=== PATIENT | male | born 1965 | race African-American/Black ===

== ENCOUNTER → 2023-11-03 | Emergency (ER) | payer BC, OTHER ==
[~2023-11-03] MED LIST: DIPHENHYDRAMINE 25 MG TAB/CAP ONE; predniSONE 20 MG TAB ONE
--- NOTE | 2023-11-03 04:33 | EDPHYS ---
Physician Documentation [facility] Name: Keenan Tom Age: 58 yrs Sex: Male : 1965 Arrival Date: 11/03/2023 Time: 03:54 Bed 12 Private MD: ED Physician Marek Block HPI: 11/02 04:01 This 58 yrs old Black Male presents to ER via Unassigned with complaints of Rash. sp4 04:28 58-year-old male presents with complaint of bilateral lower abdominal lateral rash that sp4 has started Tuesday after he completed course of Paxlovid. Rashes started 5 days ago.. Patient states he was using creams for rash but has not improved. . Historical: - Allergies: 04:15 No Known Allergies; ha1 - PMHx: 04:15 LYMPHOMA; ha1 - Immunization history:: Adult Immunizations up to date. - Social history:: Smoking status: Patient denies any tobacco usage or history of. - Family history:: not pertinent. ROS: 04:28 Constitutional: Negative for fever, chills, and weight loss, positive for abdominal sp4 rash and itching 04:28 All other systems are negative, Exam: 04:28 Constitutional: This is a well developed, well nourished patient who is awake, alert, sp4 and in no acute distress. Head/Face: Normocephalic, atraumatic. Eyes: Pupils equal round and reactive to light, extra-ocular motions intact. Lids and lashes normal. Conjunctiva and sclera are not injected. Cornea within normal limits. Periorbital areas with no swelling, redness, or edema. ENT: Nares patent. No nasal discharge, no septal abnormalities noted. Tympanic membranes are normal and external auditory canals are clear. Oropharynx with no redness, swelling, or masses, exudates, or evidence of obstruction, uvula midline. Mucous membranes moist. Neck: Trachea midline, no thyromegaly or masses palpated, and no cervical lymphadenopathy. Supple, full range of motion without nuchal rigidity, or vertebral point tenderness. Chest/axilla: Normal chest wall appearance and motion. Nontender with no deformity. No lesions are appreciated. Cardiovascular: Regular rate and rhythm with a normal S1 and S2. No gallops, murmurs, or rubs. Normal PMI, no JVD. No pulse deficits. Respiratory: Lungs have equal breath sounds bilaterally, clear to auscultation and percussion. No rales, rhonchi or wheezes noted. No increased work of breathing, no retractions or nasal flaring. Abdomen/GI: Soft, with normal bowel sounds. No distension or tympany. No guarding or rebound. No evidence of tenderness throughout. Back: No spinal tenderness. No costovertebral tenderness. Male : Normal genitalia with no discharge or lesions. Skin: Warm, dry with normal turgor. Normal color with no rashes, no lesions, and no evidence of cellulitis. MS/ Extremity: Pulses equal, no cyanosis. Neurovascular intact. Full, normal range of motion. Neuro: Awake and alert, GCS 15, oriented to person, place, time, and situation. Cranial nerves II-XII grossly intact. Motor strength 5/5 in all extremities. Sensory grossly intact. Psych: Awake, alert, with orientation to person, place and time. Behavior, mood, and affect are within normal limits Vital Signs: 04:11 BP 172 / 98; Pulse 72; Resp 17 S; Temp 98.2; Pulse Ox 100% on R/A; Weight 93.44 kg; ha1 Height 5 ft. 10 in. ; 04:24 BP 133 / 95; Pulse 75; Resp 17 S; Pulse Ox 100% on R/A; ha1 04:11 Body Mass Index 29.56 (93.44 kg, 177.8 cm) ha1 MDM: 04:09 Patient medically screened. sp4 04:30 Differential diagnosis: impetigo, varicella, allergic reaction, parasite infection. sp4 Data reviewed: vital signs, nurses notes, old medical records. ED course: Patient will be prescribed prednisone once a day for 5 days and also as needed Benadryl will be advised.. Administered Medications: 04:24 Drug: predniSONE PO 60 mg PO once Route: PO; ha1 04:52 Follow up: Response: No adverse reaction ha1 04:24 Drug: diphenhydrAMINE PO 25 mg PO once Route: PO; ha1 04:52 Follow up: Response: No adverse reaction ha1 Disposition Summary: 11/03/23 04:33 Discharge Ordered Problem: new sp4 Symptoms: have improved sp4 Condition: Stable sp4 Diagnosis - Allergic reaction secondary to medication sp4 Followup: sp4 - With: Private Physician - When: 7 - 10 days - Reason: Recheck today's complaints Discharge Instructions: - Discharge Summary Sheet sp4 - Atopic Dermatitis sp4 Forms: - Patient Portal Instructions sp4 Prescriptions: - Prednisone 20 mg Oral Tablet - take 2 tablets ORAL route once daily for 5 days; 10 tablet; Refills: 0, Product sp4 Selection Permitted Signatures: Nicole Padilla RN RN ha1 Marek Block MD MD sp4
--- NOTE | 2023-11-03 04:33 | ER ---
Nurse's Notes [facility] Name: Keenan Tom Age: 58 yrs Sex: Male : 1965 Arrival Date: 11/03/2023 Time: 03:54 Bed 12 Private MD: Diagnosis: Allergic reaction secondary to medication Presentation: 11/02 04:11 Chief complaint: Patient states: I HAVE A RASH IN THE INGUINAL AREA SINCE TUESDAY. ha1 Coronavirus screen: Vaccine status: Patient reports being unvaccinated. Ebola Screen: No symptoms or risks identified at this time. Initial Sepsis Screen: Does the patient meet any 2 criteria? No. Patient's initial sepsis screen is negative. Does the patient have a suspected source of infection? No. Patient's initial sepsis screen is negative. Risk Assessment: Do you want to hurt yourself or someone else? Patient reports no desire to harm self or others. Onset of symptoms was November 03, 2023. 04:11 Method Of Arrival: Ambulatory 1 04:11 Acuity: MJ 4 ha1 Triage Assessment: 04:15 General: Appears comfortable, Behavior is calm, cooperative. Pain: Denies pain. Neuro: ha1 Level of Consciousness is awake, alert, obeys commands, Oriented to person, place, time, situation. Cardiovascular: Capillary refill < 3 seconds Patient's skin is warm and dry. Respiratory: Airway is patent Respiratory effort is even, unlabored, Respiratory pattern is regular, symmetrical. Derm: Reports itching. Derm: Rash noted that is red, urticaria. Musculoskeletal: Circulation, motion, and sensation intact. Range of motion: intact in all extremities. Historical: - Allergies: 04:15 No Known Allergies; ha1 - PMHx: 04:15 LYMPHOMA; ha1 - Immunization history:: Adult Immunizations up to date. - Social history:: Smoking status: Patient denies any tobacco usage or history of. - Family history:: not pertinent. Screenin:18 [facility] ED Fall Risk Assessment (Adult) History of falling in the last 3 months, ha1 including since admission No falls in past 3 months (0 pts) Confusion or Disorientation No (0 pts) Intoxicated or Sedated No (0 pts) Impaired Gait No (0 pts) Mobility Assist Device Used No (0 pt) Altered Elimination No (0 pt) Score/Fall Risk Level 0 - 2 = Low Risk Oriented to surroundings, Maintained a safe environment, Hourly rounding (assess needs \T\ fall precautionary measures) done. Abuse screen: Denies threats or abuse. Denies injuries from another. Nutritional screening: No deficits noted. Tuberculosis screening: No symptoms or risk factors identified. Vital Signs: 04:11 BP 172 / 98; Pulse 72; Resp 17 S; Temp 98.2; Pulse Ox 100% on R/A; Weight 93.44 kg; ha1 Height 5 ft. 10 in. ; 04:24 BP 133 / 95; Pulse 75; Resp 17 S; Pulse Ox 100% on R/A; ha1 04:11 Body Mass Index 29.56 (93.44 kg, 177.8 cm) ha1 ED Course: 03:58 Patient arrived in ED. gm2 04:01 Marek Block MD is Attending Physician. sp4 04:08 Patient has correct armband on for positive identification. Placed in gown. Bed in low ha1 position. Call light in reach. Side rails up X 1. 04:08 Arm band placed on right wrist. ha1 04:15 Triage completed. ha1 04:51 Provided Education on: medication administration . ha1 04:51 No provider procedures requiring assistance completed. Patient did not have IV access ha1 during this emergency room visit. Administered Medications: 04:24 Drug: predniSONE PO 60 mg PO once Route: PO; ha1 04:52 Follow up: Response: No adverse reaction ha1 04:24 Drug: diphenhydrAMINE PO 25 mg PO once Route: PO; ha1 04:52 Follow up: Response: No adverse reaction 1 Medication: 04:18 VIS not applicable for this client. ha1 Outcome: 04:33 Discharge ordered by . sp4 04:51 Discharged to home ambulatory, ha1 04:51 Condition: stable 04:51 Discharge instructions given to patient, Instructed on discharge instructions, follow up and referral plans. medication usage, Demonstrated understanding of instructions, follow-up care, medications, Prescriptions given X 2, 04:52 Patient left the ED. ha1 Signatures: Nicole Padilla RN RN ha1 Marek Block MD MD sp4 Linda Montoya 2
[2023-11-03 05:15] VITALS: BP 133/95; TEMP 98.2; O2SAT 100
== END ==
LOC: ER 03:54
DX: R21 Rash and other nonspecific skin eruption (principal); T50.995A Adverse effect of other drugs, medicaments and biological substances, initial encounter
CPT/HCPCS: 99283; J7512

== ENCOUNTER 2024-10-03 02:53 | Emergency (ER) | payer BC ==
--- NOTE | 2024-10-03 03:16 | EDPHYS ---
Physician Documentation [facility] Name: Keenan Tom Age: 59 yrs Sex: Male : 1965 Arrival Date: 10/03/2024 Time: 02:53 Bed DX3 Private MD: Amilcar Hester S ED Physician Marek Block HPI: 10/03 02:58 This 59 yrs old Black Male presents to ER via Unassigned with complaints of Rash. sp4 22:03 59-year-old male presents with complaint of truncal and lower abdominal rash starting sp4 acutely. Historical: - Allergies: 03:18 No Known Allergies; lg3 - Home Meds: 03:18 Metoprolol Tartrate Oral [Active]; lg3 - PMHx: 03:18 LYMPHOMA; HTN (LYMPHOMA); lg3 - PSHx: 03:18 L shoulder (LYMPHOMA); lg3 - Immunization history:: Adult Immunizations up to date. - Infectious Disease History:: Denies. - Social history:: Smoking status: Patient denies any tobacco usage or history of. Patient/guardian denies using alcohol, street drugs. - Family history:: not pertinent. ROS: 22:05 Constitutional: Negative for fever, chills, and weight loss, positive for truncal sp4 and lower abdominal rash 22:05 All other systems are negative, Exam: 22:05 Constitutional: This is a well developed, well nourished patient who is awake, alert, sp4 and in no acute distress. Head/Face: Normocephalic, atraumatic. Eyes: Pupils equal round and reactive to light, extra-ocular motions intact. Lids and lashes normal. Conjunctiva and sclera are not injected. Cornea within normal limits. Periorbital areas with no swelling, redness, or edema. ENT: Nares patent. No nasal discharge, no septal abnormalities noted. Tympanic membranes are normal and external auditory canals are clear. Oropharynx with no redness, swelling, or masses, exudates, or evidence of obstruction, uvula midline. Mucous membranes moist. Neck: Trachea midline, no thyromegaly or masses palpated, and no cervical lymphadenopathy. Supple, full range of motion without nuchal rigidity, or vertebral point tenderness. Chest/axilla: Normal chest wall appearance and motion. Nontender with no deformity. No lesions are appreciated. Cardiovascular: Regular rate and rhythm with a normal S1 and S2. No gallops, murmurs, or rubs. Normal PMI, no JVD. No pulse deficits. Respiratory: Lungs have equal breath sounds bilaterally, clear to auscultation and percussion. No rales, rhonchi or wheezes noted. No increased work of breathing, no retractions or nasal flaring. Abdomen/GI: Soft, with normal bowel sounds. No distension or tympany. No guarding or rebound. No evidence of tenderness throughout. Back: No spinal tenderness. No costovertebral tenderness. Skin: Warm, dry with normal turgor. Normal color with very mild truncal and lower abdominal eczematoid type rash in small islets MS/ Extremity: Pulses equal, no cyanosis. Neurovascular intact. Full, normal range of motion. Neuro: Awake and alert, GCS 15, oriented to person, place, time, and situation. Cranial nerves II-XII grossly intact. Motor strength 5/5 in all extremities. Sensory grossly intact. Psych: Awake, alert, with orientation to person, place and time. Behavior, mood, and affect are within normal limits Vital Signs: 03:16 BP 134 / 88; Pulse 68; Resp 16 S; Temp 98(O); Pulse Ox 100% on R/A; Weight 92.99 kg lg3 (R); Height 5 ft. 10 in. (R); 03:16 Body Mass Index 29.41 (92.99 kg, 177.8 cm) lg3 Pete Coma Score: 22:05 Eye Response: spontaneous(4). Motor Response: obeys commands(6). Verbal Response: sp4 oriented(5). Total: 15. MDM: 03:15 Medical Screening Exam initiated sp4 22:05 Differential diagnosis: impetigo, varicella, allergic reaction, parasite infection, sp4 carcinoma. Data reviewed: vital signs, nurses notes, old medical records. ED course: Patient appears to have mild eczematoid type rash. Will treat like allergic dermatitis. Prescribed prednisone for the next 5 days.. Administered Medications: 03:26 Drug: diphenhydrAMINE PO 25 mg PO once Route: PO; lg3 03:27 Follow up: Response: No adverse reaction; Medication administered at discharge. lg3 03:26 Drug: Famotidine PO 20 mg PO once Route: PO; lg3 03:27 Follow up: Response: No adverse reaction; Medication administered at discharge. lg3 03:27 Drug: predniSONE PO 60 mg PO once Route: PO; lg3 03:27 Follow up: Response: No adverse reaction; Medication administered at discharge. lg3 Disposition: 22:08 Chart complete. sp4 Disposition Summary: 10/03/24 03:15 Discharge Ordered Notes: Location: Home sp4 Problem: new sp4 Symptoms: have improved sp4 Condition: Stable sp4 Diagnosis - Allergic contact dermatitis due to other agents sp4 Followup: sp4 - With: Amilcar Hester MD - When: 7 - 10 days - Reason: Recheck today's complaints Discharge Instructions: - Discharge Summary Sheet sp4 - Contact Dermatitis sp4 Forms: - Patient Portal Instructions sp4 Prescriptions: - Benadryl 25 mg Oral capsule - take 1 capsule ORAL route every 8 hours As needed; 30 tablet; Refills: 0, sp4 Product Selection Permitted - Prednisone 20 mg Oral Tablet - take 2 tablets ORAL route once daily for 5 days; 10 tablet; Refills: 0, Product sp4 Selection Permitted Signatures: Patricia Kelley RN RN lg3 aMrek Block MD MD sp4
[2024-10-03] MEDS ORDERED: predniSONE 20 MG TAB ONE (03:22)
[2024-10-03] MEDS ORDERED: DIPHENHYDRAMINE 25 MG TAB/CAP ONE (03:22)
[2024-10-03] MEDS ORDERED: FAMOTIDINE 20 MG TAB ONE (03:22)
--- NOTE | 2024-10-03 03:28 | ER ---
Nurse's Notes [facility] Name: Keenan Tom Age: 59 yrs Sex: Male : 1965 Arrival Date: 10/03/2024 Time: 02:53 Bed DX3 Private MD: Amilcar Hester S Diagnosis: Allergic contact dermatitis due to other agents Presentation: 10/03 03:16 Chief complaint: Patient states: itchy rash on bilateral flank, bilateral hips and lg3 back. Coronavirus screen: Client denies travel out of the [place] in the last 14 days. At this time, the client does not indicate any symptoms associated with coronavirus-19. Ebola Screen: No symptoms or risks identified at this time. Initial Sepsis Screen: Does the patient meet any 2 criteria? No. Patient's initial sepsis screen is negative. Does the patient have a suspected source of infection? No. Patient's initial sepsis screen is negative. Risk Assessment: Do you want to hurt yourself or someone else? Patient reports no desire to harm self or others. Onset of symptoms is unknown. 03:16 Method Of Arrival: Ambulatory lg3 03:16 Acuity: MJ 5 lg3 Triage Assessment: 03:18 General: Appears in no apparent distress. uncomfortable, Behavior is calm, cooperative. lg3 Pain: Denies pain. EENT: No deficits noted. No signs and/or symptoms were reported regarding the EENT system. Neuro: No deficits noted. Bales Agitation-Sedation Scale (RASS): 0 - Alert and Calm Level of Consciousness is awake, alert, obeys commands, Oriented to person, place, time, situation. Cardiovascular: No deficits noted. Denies chest pain, shortness of breath, Capillary refill < 3 seconds Clubbing of nail beds is absent JVD is absent Patient's skin is warm and dry. Respiratory: No deficits noted. Airway is patent Respiratory effort is even, unlabored, Respiratory pattern is regular, symmetrical, Breath sounds are clear bilaterally. GI: No deficits noted. No signs and/or symptoms were reported involving the gastrointestinal system. : No signs and/or symptoms were reported regarding the genitourinary system. Derm: Skin is intact, is healthy with good turgor, Skin is dry, Skin is normal, Skin temperature is warm Rash noted that is itchy, on back, abdomen and pelvis. Musculoskeletal: No deficits noted. No signs and/or symptoms reported regarding the musculoskeletal system. Circulation, motion, and sensation intact. Range of motion: intact in all extremities. Historical: - Allergies: 03:18 No Known Allergies; lg3 - Home Meds: 03:18 Metoprolol Tartrate Oral [Active]; lg3 - PMHx: 03:18 LYMPHOMA; HTN (LYMPHOMA); lg3 - PSHx: 03:18 L shoulder (LYMPHOMA); lg3 - Immunization history:: Adult Immunizations up to date. - Infectious Disease History:: Denies. - Social history:: Smoking status: Patient denies any tobacco usage or history of. Patient/guardian denies using alcohol, street drugs. - Family history:: not pertinent. Screenin:20 [facility] ED Fall Risk Assessment (Adult) History of falling in the last 3 months, lg3 including since admission No falls in past 3 months (0 pts) Confusion or Disorientation No (0 pts) Intoxicated or Sedated No (0 pts) Impaired Gait No (0 pts) Mobility Assist Device Used No (0 pt) Altered Elimination No (0 pt) Score/Fall Risk Level 0 - 2 = Low Risk Oriented to surroundings, Maintained a safe environment, Educated pt \T\ family on fall prevention, incl call for assistance when getting out of bed, Assessed \T\ reinforced patient's understanding of fall precautions. Abuse screen: Denies threats or abuse. Denies injuries from another. Nutritional screening: No deficits noted. Tuberculosis screening: No symptoms or risk factors identified. Assessment: 03:20 General: see triage assessment. lg3 Vital Signs: 03:16 BP 134 / 88; Pulse 68; Resp 16 S; Temp 98(O); Pulse Ox 100% on R/A; Weight 92.99 kg lg3 (R); Height 5 ft. 10 in. (R); 03:16 Body Mass Index 29.41 (92.99 kg, 177.8 cm) lg3 Pete Coma Score: 22:05 Eye Response: spontaneous(4). Motor Response: obeys commands(6). Verbal Response: sp4 oriented(5). Total: 15. ED Course: 02:57 Patient arrived in ED. gm2 02:57 Amilcar Hester MD is Private Physician. gm2 02:58 Marek Block MD is Attending Physician. sp4 03:15 Amilcar Hester MD is Referral Physician. sp4 03:17 Triage completed. lg3 03:18 Arm band placed on right wrist. lg3 03:20 Patient has correct armband on for positive identification. lg3 03:20 No provider procedures requiring assistance completed. Patient did not have IV access lg3 during this emergency room visit. Administered Medications: 03:26 Drug: diphenhydrAMINE PO 25 mg PO once Route: PO; lg3 03:27 Follow up: Response: No adverse reaction; Medication administered at discharge. lg3 03:26 Drug: Famotidine PO 20 mg PO once Route: PO; lg3 03:27 Follow up: Response: No adverse reaction; Medication administered at discharge. lg3 03:27 Drug: predniSONE PO 60 mg PO once Route: PO; lg3 03:27 Follow up: Response: No adverse reaction; Medication administered at discharge. lg3 Medication: 03:20 VIS not applicable for this client. lg3 Outcome: 03:15 Discharge ordered by . sp4 03:27 Discharged to home ambulatory, lg3 03:27 Condition: stable 03:27 Discharge instructions given to patient, Instructed on discharge instructions, follow up and referral plans. medication usage, Demonstrated understanding of instructions, follow-up care, medications, Prescriptions given X 2, 03:27 Patient left the ED. lg3 Signatures: Patricia Kelley RN RN lg3 Marek Block MD MD sp4 Linda Montoya gm2
[2024-10-03 03:37] VITALS: BP 134/88; TEMP 98; O2SAT 100
== END 2024-10-03 03:27 | disposition home or self-care (01) ==
LOC: ER 02:53
DX: L23.89 Allergic contact dermatitis due to other agents (principal)
CPT/HCPCS: J7512